=== PATIENT | female | born 1975 | race African-American/Black ===

== ENCOUNTER 2016-11-25 01:35 | Emergency (ER) | payer OTHER ==
[~2016-11-25] VITALS: Ht 162.6 cm; Wt 84.0 kg
[2016-11-25] MEDS ORDERED: DEXAMETHASONE 10MG/ML 1ML VIAL IV ONE (02:00)
[2016-11-25] MEDS ORDERED: FAMOTIDINE 20MG/2ML VIAL IV ONE (02:00)
[2016-11-25] MEDS ORDERED: DIPHENHYDRAMINE 50MG/ML VIAL IV ONE (02:00)
[2016-11-25 02:19] LABS: BASOPHILS % 0.7 % (0.0-2.0); EOSINOPHILS % 1.1 % (0.0-5.0); HEMATOCRIT. 37.9 % (36.0-48.0); HEMOGLOBIN. 12.4 g/dL (12.0-16.0); LYMPHOCYTES % 36.1 % (20.0-50.0); MEAN CORPUSCULAR HEMOGLOBIN 24.5 pg (28.0-32.0); MEAN CORPUSCULAR VOLUME 74.8 fL (81.0-99.0); MEAN PLATELET VOLUME 7.5 fl (7.4-10.4); MONOCYTES % 4.5 % (2.0-8.0); NEUTROPHILS % 57.6 % (40.0-76.0); PLATELET 650 x1000/uL (130-400); RED BLOOD CELL COUNT 5.07 mill/uL (4.2-5.4); RED CELL DISTRIBUTION WIDTH 18.3 % (11.6-14.6)
[2016-11-25 02:27] LABS: CHLORIDE 99 mEq/L (98-107)
[2016-11-25 02:33] LABS: CARBON DIOXIDE 27 mEq/L (21-32)
[2016-11-25 05:06] VITALS: BP 124/87
== END 2016-11-25 05:05 | disposition home or self-care (01) ==
LOC: ER 01:48
DX: T78.40XA Allergy, unspecified, initial encounter (principal); X58.XXXA Exposure to other specified factors, initial encounter; I10 Essential (primary) hypertension; Z91.013 Allergy to seafood
CPT/HCPCS: 36415; 71010; 80048; 85025; 96374; 96375; 99285; J1100; J1200; J3490; Z7610